=== PATIENT | male | born 1995 | race Caucasian/White ===

== ENCOUNTER 2019-05-25 17:27 | Emergency (ER) | payer OTHER ==
[2019-05-25] MEDS ORDERED: Lidocaine 1% 30 ML SDV INJECT ONE (17:29)
[2019-05-25] MEDS ORDERED: Bacitracin Oint 1 GM U/D Packet TOP ONE (17:29)
--- NOTE | 2019-05-25 17:35 | EDM.PDOC ---
ED HPI GENERAL MEDICAL PROBLEM - General Chief Complaint: Laceration Stated Complaint: FISH HOOK IN HAND Time Seen by Provider: 05/25/19 17:30 Source of Information: Reports: Patient, RN, RN Notes Reviewed History Limitations: Reports: No Limitations - History of Present Illness INITIAL COMMENTS - FREE TEXT/NARRATIVE: Pt c/o fish hook to left hand index finger. Denies any other injury. Pt states Tetanus vaccine is up to date. Onset: Today, Sudden Duration: Constant Location: Reports: Upper Extremity, Left Quality: Reports: Ache Severity: Mild Improves with: Reports: None Worsens with: Reports: None Associated Symptoms: Reports: No Other Symptoms Past Medical History - Past Health History Medical/Surgical History: Denies Medical/Surgical History Social & Family History - Family History Family Medical History: Noncontributory - Living Situation & Occupation Living situation: Reports: with Family ED ROS GENERAL - Review of Systems Review Of Systems: Comprehensive ROS is negative, except as noted in HPI. ED EXAM, SKIN/RASH Exam: See Below Exam Limited By: No Limitations General Appearance: Alert, WD/WN, No Apparent Distress Respiratory/Chest: No Respiratory Distress Cardiovascular: Normal Peripheral Pulses Extremities: Normal Capillary Refill, Other (Fish hook to left distal index finger, no signs of infection.) Neurological: Alert, No Motor/Sensory Deficits Psychiatric: Normal Mood Skin: Warm, Dry Course - Orders/Labs/Meds Orders: Active Orders 24 hr Category Date Time Status Bacitracin [Bacitracin Oint 1 GM] Med 05/25/19 17:29 Once 1 dose TOP ONETIME ONE Lidocaine 1% [Xylocaine-MPF 1%] Med 05/25/19 17:29 Once 30 ml INJECT ONETIME ONE Medication Orders Bacitracin (Bacitracin Oint 1 Gm) 1 dose TOP ONETIME ONE Stop: 05/25/19 17:30 Lidocaine HCl (Xylocaine-Mpf 1%) 30 ml INJECT ONETIME ONE Stop: 05/25/19 17:30 Meds: Medications Generic Name Dose Route Start Last Admin Trade Name Freq PRN Reason Stop Dose Admin Bacitracin 1 dose 05/25/19 17:29 Bacitracin Oint 1 Gm TOP 05/25/19 17:30 ONETIME ONE Lidocaine HCl 30 ml 05/25/19 17:29 Xylocaine-Mpf 1% INJECT 05/25/19 17:30 ONETIME ONE - Re-Assessments/Exams Free Text/Narrative Re-Assessment/Exam: 05/25/19 17:34 Fish hook removal from left index finger. Area cleaned and prepped by RN with hibiclens and sterile water. Area of fish hook locally blocked with lidocaine 1 % 5cc. Using clean tech. the eye of the hook and lure were cut free and removed with side cutter. The hook shank grasped with needle nosed plier and advanced until the hook and misael were exposed through the skin and removed with side cutter. The remaining hook backed out the entry wound. No residual foreign body. Wound was cleansed, and dried, bacitracin ointment applied, and dressing by RN. No complications. Departure - Departure Time of Disposition: 17:34 Disposition: Home, Self-Care 01 Condition: Good Clinical Impression: Fish hook injury of finger of left hand Qualifiers: Encounter type: initial encounter Qualified Code(s): S69.92XA - Unspecified injury of left wrist, hand and finger(s), initial encounter - Discharge Information *PRESCRIPTION DRUG MONITORING PROGRAM REVIEWED*: No *COPY OF PRESCRIPTION DRUG MONITORING REPORT IN PATIENT SHAKILA: No Instructions: Puncture Wound, [id number] Forms: ED Department Discharge Additional Instructions: Follow up in clinic if any signs of infection develop. - My Orders Last 24 Hours: My Active Orders 05/25/19 17:29 Bacitracin [Bacitracin Oint 1 GM] 1 dose TOP ONETIME ONE Lidocaine 1% [Xylocaine-MPF 1%] 30 ml INJECT ONETIME ONE - Assessment/Plan Last 24 Hours: My Active Orders 05/25/19 17:29 Bacitracin [Bacitracin Oint 1 GM] 1 dose TOP ONETIME ONE Lidocaine 1% [Xylocaine-MPF 1%] 30 ml INJECT ONETIME ONE
[2019-05-25] MEDS ORDERED: Diphtheria,Pertussis(Acell),Tetanus Vaccine 0.5 ML SDV IM ONE (17:51)
== END 2019-05-25 17:59 | disposition home or self-care (01) ==
LOC: DL.ED 17:27
DX: S61.241A Puncture wound with foreign body of left index finger without damage to nail, initial encounter (principal); X58.XXXA Exposure to other specified factors, initial encounter
CPT/HCPCS: 90471; 90715; 99282-25; J2001